=== PATIENT | female | born 1985 | race Caucasian/White ===

== ENCOUNTER 2017-05-17 15:52 | Emergency (ER) | payer OTHER ==
[~2017-05-17] VITALS: Ht 170.2 cm; Wt 109.1 kg
[2017-05-17 18:08] VITALS: BP 141/89
== END 2017-05-17 18:30 | disposition home or self-care (01) ==
LOC: EMS 15:54
DX: S39.012A Strain of muscle, fascia and tendon of lower back, initial encounter (principal); M25.512 Pain in left shoulder; M25.562 Pain in left knee; M79.675 Pain in left toe(s); F17.210 Nicotine dependence, cigarettes, uncomplicated; V49.29XA Unspecified car occupant injured in collision with other motor vehicles in nontraffic accident, initial encounter; Y93.89 Activity, other specified; Y92.89 Other specified places as the place of occurrence of the external cause; Y99.0 Civilian activity done for income or pay
CPT/HCPCS: 99282; 99406